=== PATIENT | female | born 1970 | race Caucasian/White ===

== ENCOUNTER 2016-12-22 22:25 | Emergency (ER) | payer OTHER ==
--- NOTE | 2016-12-22 23:44 | ED PDOC ---
Arrival/HPI - General Historian: Patient - History of Present Illness Time/Duration: Prior to Arrival Symptom Onset: Sudden Symptom Course: Unchanged Activities at Onset: Light Context: Walking, Home, Tripped <Ginny Veloz - Last Filed: 12/23/16 01:26> <Vadim Kellogg - Last Filed: 12/23/16 01:46> - General Chief Complaint: Lower Extremity Problem/Injury Time Seen by Provider: 12/22/16 23:12 - History of Present Illness Narrative History of Present Illness (Text): 12/22/16 23:39 46 year old female, whose past medical history includes hypertension and diabetes, who presents to the ED accompanied by family complaining of left great toe pain s/p mechanical fall. Patient states she stumbled and tripped walking on a rug while at home and injured her left great toe at 22:00 tonight. Patient denies falling to the ground. Patient now complaining of pain to the left great toe Patient denies any loss of consciousness, head trauma, weakness/ numbness/tingling in the extremity, or any other complaints. No medications taken for pain. incident occurred prior to arrival. (Ginny Veloz) Past Medical History - Provider Review Nursing Documentation Reviewed: Yes - Cardiac Hx Hypertension: Yes - Endocrine/Metabolic Hx Diabetes Mellitus Type 2: Yes - Psychiatric Hx Substance Use: No - Surgical History Hx Tubal Ligation: Yes - Anesthesia Hx Anesthesia: Yes Hx Anesthesia Reactions: No <Ginny Veloz - Last Filed: 12/23/16 01:26> Family/Social History - Physician Review Nursing Documentation Reviewed: Yes Family/Social History: Unknown Family HX Smoking Status: Unknown If Ever Smoked Hx Alcohol Use: No Hx Substance Use: No <Ginny Veloz - Last Filed: 12/23/16 01:26> Allergies/Home Meds <Ginny Veloz - Last Filed: 12/23/16 01:26> <Vadim Kellogg - Last Filed: 12/23/16 01:46> Allergies/Adverse Reactions: Allergies Penicillins Allergy (Verified 12/23/16 00:52) RASH Home Medications: Home Meds Medication Instructions Recorded Confirmed GlipiZIDE [Glipizide] 20 mg PO BID 10/25/15 12/23/16 Lisinopril [Zestril] 20 mg PO DAILY 10/25/15 12/23/16 Sertraline [Zoloft] 100 mg PO DAILY 10/25/15 12/23/16 metFORMIN [glucOPHAGE] 1,000 mg PO BID 10/25/15 12/23/16 Review of Systems - Physician Review All systems were reviewed & negative as marked: Yes - Review of Systems Constitutional: absent: Fatigue, Fevers Respiratory: absent: SOB, Cough Cardiovascular: absent: Chest Pain, Palpitations Gastrointestinal: absent: Abdominal Pain, Constipation, Diarrhea, Nausea, Vomiting Genitourinary Female: absent: Dysuria, Frequency Musculoskeletal: Arthralgias, Other (+left great toe pain). absent: Back Pain, Neck Pain Skin: absent: Rash, Pruritis Neurological: Normal. absent: Headache, Dizziness <Ginny Veloz - Last Filed: 12/23/16 01:26> Physical Exam Vital Signs Reviewed: Yes Temperature: Afebrile Blood Pressure: Normal Pulse: Regular Respiratory Rate: Normal Appearance: Positive for: Well-Appearing, Non-Toxic, Comfortable Pain Distress: None Mental Status: Positive for: Alert and Oriented X 3 - Systems Exam Head: Present: Atraumatic, Normocephalic Extroacular Muscles: Present: EOMI Conjunctiva: Present: Normal Mouth: Present: Moist Mucous Membranes Neck: Present: Normal Range of Motion Respiratory/Chest: Present: Clear to Auscultation, Good Air Exchange. No: Respiratory Distress, Accessory Muscle Use Cardiovascular: Present: Regular Rate and Rhythm, Normal S1, S2. No: Murmurs Abdomen: No: Tenderness, Distention Upper Extremity: Present: Normal ROM Lower Extremity: Present: NORMAL PULSES, Normal ROM, Tenderness (Tenderness, ecchymosis, and swelling to entire left Great toe, sensation and distal pulses intact), Neurovascularly Intact, Capillary Refill < 2 s. No: Normal Inspection , Edema, CALF TENDERNESS, Deformity Neurological: Present: GCS=15, Speech Normal Skin: Present: Warm, Dry, Normal Color. No: Rashes Psychiatric: Present: Alert, Oriented x 3 <Ginny Veloz - Last Filed: 12/23/16 01:26> Medical Decision Making <Ginny Veloz - Last Filed: 12/23/16 01:26> <Vadim Kellogg - Last Filed: 12/23/16 01:46> ED Course and Treatment: 12/22/16 23:39 Impression: 46 year old female c/o left great toe pain s/p tripping over rug and stubbing toe. Differential Diagnosis included but are not limited to: fracture vs. sprain Plan: -- XR Left Foot -- Toradol -- Reassess and disposition Progress Notes: Patient is nontoxic well-appearing in no distress her vital signs are stable. XRAY L great TOE; + distal phalanx fx 1st toe. JACQUELIN TAPE TOE cane given for ambulation pt advised to walk on heel. I discussed all results in depth with the patient and advised follow-up with the primary care physician/orthopedist within the next 2 days. I advised immediate return if symptoms worsen or persist or if new concerning symptoms develop. Patient verbalizes understanding of discharge instructions and need for immediate followup. all aspects of this case were discussed the attending of record. IMPRESSION; fracture, TOE Motrin every 6 hours as needed for pain percocet; one tablet or 6 hours as needed for moderate to severe pain: May cause drowsiness Follow up with primary care physician within the next 2 days Follow up with the orthopedist/buffer copper within the next 2 days Return if symptoms worsen persist or if new symptoms develop (Ginny Veloz) - RAD Interpretation Radiology Orders: 12/22/16 23:54 FOOT LEFT GREAT TOE ROUTINE [RAD] Stat - Medication Orders Current Medication Orders: Discontinued Medications Ketorolac Tromethamine (Toradol) 60 mg IM STAT STA Stop: 12/22/16 23:55 Last Admin: 12/23/16 00:55 Dose: 60 mg - Scribe Statement The provider has reviewed the documentation as recorded by the Scribe <Ginny Veloz - Last Filed: 12/23/16 01:26> - PA / [employer] / Resident Statement /DO has reviewed & agrees with the documentation as recorded. <Vadim Kellogg - Last Filed: 12/23/16 01:46> - Scribe Statement Viola Leal All medical record entries made by the Scribe were at my direction and personally dictated by me. I have reviewed the chart and agree that the record accurately reflects my personal performance of the history, physical exam, medical decision making, and the department course for this patient. I have also personally directed, reviewed, and agree with the discharge instructions and disposition. (Ginny Veloz) Disposition/Present on Arrival - Present on Arrival Any Indicators Present on Arrival: No History of DVT/PE: No History of Uncontrolled Diabetes: No Urinary Catheter: No History Surgical Site Infection Following: None - Disposition Have Diagnosis and Disposition been Completed?: Yes Disposition Time: 01:11 Patient Plan: Discharge <Ginny Veloz - Last Filed: 12/23/16 01:26> <Vadim Kellogg - Last Filed: 12/23/16 01:46> - Disposition Diagnosis: Fracture, toe Disposition: HOME/ ROUTINE Patient Problems: Current Active Problems Problem Status Onset Fracture, toe Acute Condition: GOOD Discharge Instructions (ExitCare): Toe Fracture (ED) Additional Instructions: Motrin every 6 hours as needed for pain percocet; one tablet or 6 hours as needed for moderate to severe pain: May cause drowsiness Follow up with primary care physician within the next 2 days Follow up with the orthopedist/buffer copper within the next 2 days Return if symptoms worsen persist or if new symptoms develop Prescriptions: Ibuprofen [Motrin] 600 mg PO Q6H PRN #20 tab PRN Reason: pain/fever reduction oxyCODONE/Acetaminophen [Percocet 5/325 mg Tab] 1 tab PO Q6H PRN #10 tab PRN Reason: moderate to severe pain Referrals: Bing Casiano MD [Staff Provider] - Follow up with primary Gen Estrada DPM [Staff Provider] - Follow up with primary [facility] [Outside] - Follow up with primary Forms: WORK NOTE
--- NOTE | 2016-12-22 23:44 | ED PDOC ---
Arrival/HPI - General Time Seen by Provider: 12/22/16 23:12 - History of Present Illness Narrative History of Present Illness (Text): 12/22/16 23:35 46 year old female patient with a history of hypertension and diabetes presents to the Emergency department complaining of pain in her left big toe due to stumbling over her rug at around 22:00. The patient denies chest pain, shortness of breath, persistent cough, nausea, vomiting, diarrhea, or any other symptoms. 12/22/16 23:45 Time/Duration: 1 hour, 1-3 hours Symptom Onset: Sudden Symptom Course: Unchanged Quality: Aching Context: Home Past Medical History - Provider Review Nursing Documentation Reviewed: Yes - Cardiac Hx Hypertension: Yes - Endocrine/Metabolic Hx Diabetes Mellitus Type 2: Yes - Psychiatric Hx Substance Use: No - Surgical History Hx Tubal Ligation: Yes - Anesthesia Hx Anesthesia: Yes Hx Anesthesia Reactions: No Family/Social History - Physician Review Nursing Documentation Reviewed: Yes Family/Social History: Unknown Family HX Smoking Status: Unknown If Ever Smoked Hx Alcohol Use: No Hx Substance Use: No Allergies/Home Meds Allergies/Adverse Reactions: Allergies Penicillins Allergy (Verified 10/25/15 08:32) RASH Home Medications: Home Meds Medication Instructions Recorded Confirmed Cholestol Med 10/25/15 GlipiZIDE [Glipizide] 20 mg PO BID 10/25/15 10/25/15 Lisinopril [Zestril] 20 mg PO DAILY 10/25/15 10/25/15 Sertraline [Zoloft] 100 mg PO DAILY 10/25/15 10/25/15 Vit D Unk Dose 10/25/15 metFORMIN [glucOPHAGE] 1,000 mg PO BID 10/25/15 10/25/15 Review of Systems - Physician Review All systems were reviewed & negative as marked: Yes - Review of Systems Constitutional: Normal Eyes: Normal ENT: Normal Respiratory: Normal. absent: SOB, Cough Cardiovascular: Normal. absent: Chest Pain Gastrointestinal: Normal. absent: Diarrhea, Nausea, Vomiting Genitourinary Female: Normal Musculoskeletal: Normal, Other (Pain in left big toe) Skin: Normal Neurological: Normal Endocrine: Normal Hemo/Lymphatic: Normal Psychiatric: Normal Disposition/Present on Arrival - Present on Arrival History of DVT/PE: No History of Uncontrolled Diabetes: No Urinary Catheter: No History Surgical Site Infection Following: None - Disposition
[2016-12-23 00:46] VITALS: BP 137/81; PULSE 90; RESP 17; TEMP 98.8; O2SAT 98
[2016-12-23 00:47] VITALS: BMI 36.9
--- NOTE | 2016-12-23 09:58 | RAD ---
PROCEDURE: Radiographs of the left great toe. TECHNIQUE:: AP radiograph of the left foot, with oblique and lateral view of the left great toe. COMPARISON: None. FINDINGS: BONES: Current study reveals a transverse fracture through the base of the distal phalanx 1st toe. There appears some mild inferior displacement distal fragment. Mild surrounding soft tissue swelling. . JOINTS: Joint spaces preserved SOFT TISSUES: As above. OTHER FINDINGS: None. IMPRESSION: Fracture base proximal phalanx great toe with surrounding soft tissue swelling This report placed in PA review folder followup
== END 2016-12-23 01:11 | disposition home or self-care (01) ==
LOC: ED 22:25
DX: S92.422A Displaced fracture of distal phalanx of left great toe, initial encounter for closed fracture (principal); W01.0XXA Fall on same level from slipping, tripping and stumbling without subsequent striking against object, initial encounter; Y93.89 Activity, other specified; Y92.008 Other place in unspecified non-institutional (private) residence as the place of occurrence of the external cause
CPT/HCPCS: 73660; 96372; 99283; J1885

== ENCOUNTER 2017-01-25 16:12 | Emergency (ER) | payer OTHER ==
[2017-01-25 16:12] VITALS: BMI 36.9
[2017-01-25 16:22] VITALS: TEMP 98.1
--- NOTE | 2017-01-25 16:30 | ED PDOC ---
Arrival/HPI - General Chief Complaint: Chest Pain Time Seen by Provider: 01/25/17 16:18 - History of Present Illness Narrative History of Present Illness (Text): 01/25/17 16:27 46 yo female, hx of htn, dm, presents with cp/morgan. as per pt, has had pain for 2 days, "which started after she was upset". pt states no sob, fevers, (+)nausea, no vomiting. pt saw pmd, sent to er for eval. Past Medical History - Provider Review Nursing Documentation Reviewed: Yes - Infectious Disease Hx of Infectious Diseases: None - Cardiac Hx Cardiac Disorders: Yes Hx Hypertension: Yes - Pulmonary Hx Respiratory Disorders: No - Neurological Hx Neurological Disorder: No - HEENT Hx HEENT Disorder: No - Renal Hx Renal Disorder: No - Endocrine/Metabolic Hx Diabetes Mellitus Type 2: Yes - Hematological/Oncological Hx Blood Disorders: No - Integumentary Hx Dermatological Disorder: No - Musculoskeletal/Rheumatological Hx Musculoskeletal Disorders: No - Gastrointestinal Hx Gastrointestinal Disorders: No - Genitourinary/Gynecological Hx Genitourinary Disorders: No - Psychiatric Hx Psychophysiologic Disorder: Yes Hx Depression: Yes Hx Substance Use: No - Surgical History Hx Appendectomy: Yes Hx Tonsillectomy: Yes Hx Tubal Ligation: Yes - Anesthesia Hx Anesthesia: Yes Hx Anesthesia Reactions: No Family/Social History - Physician Review Nursing Documentation Reviewed: Yes Family/Social History: Unknown Family HX Smoking Status: Unknown If Ever Smoked Hx Alcohol Use: No Hx Substance Use: No Allergies/Home Meds Allergies/Adverse Reactions: Allergies Penicillins Allergy (Verified 01/25/17 16:19) RASH Home Medications: Home Meds Medication Instructions Recorded Confirmed GlipiZIDE [Glipizide] 20 mg PO BID 10/25/15 01/25/17 Lisinopril [Zestril] 20 mg PO DAILY 10/25/15 01/25/17 Sertraline [Zoloft] 125 mg PO DAILY 10/25/15 01/25/17 metFORMIN [glucOPHAGE] 1,000 mg PO BID 10/25/15 01/25/17 Review of Systems - Review of Systems Constitutional: Normal Eyes: Normal ENT: Normal Respiratory: Normal Cardiovascular: Chest Pain Gastrointestinal: Normal Genitourinary Female: Normal Musculoskeletal: Normal Skin: Normal Neurological: Headache Endocrine: Normal Hemo/Lymphatic: Normal Psychiatric: Normal Physical Exam Vital Signs Temp Pulse Resp BP Pulse Ox 01/25/17 18:40 81 18 127/95 H 100 01/25/17 17:45 82 15 156/89 H 98 01/25/17 16:21 98.1 F 86 16 145/96 H 96 Temperature: Afebrile Blood Pressure: Normal Pulse: Regular Respiratory Rate: Normal Appearance: Positive for: Well-Appearing, Non-Toxic, Comfortable Pain Distress: None Mental Status: Positive for: Alert and Oriented X 3 - Systems Exam Head: Present: Atraumatic, Normocephalic Pupils: Present: PERRL Extroacular Muscles: Present: EOMI Conjunctiva: Present: Normal Mouth: Present: Moist Mucous Membranes Neck: Present: Normal Range of Motion Respiratory/Chest: Present: Clear to Auscultation, Good Air Exchange. No: Respiratory Distress, Accessory Muscle Use Cardiovascular: Present: Regular Rate and Rhythm, Normal S1, S2. No: Murmurs Abdomen: Present: Tenderness (mild epigastric), Normal Bowel Sounds. No: Distention, Peritoneal Signs Back: Present: Normal Inspection Upper Extremity: Present: Normal Inspection. No: Cyanosis, Edema Lower Extremity: Present: Normal Inspection. No: Edema Neurological: Present: GCS=15, CN II-XII Intact, Speech Normal, Motor Func Grossly Intact, Normal Sensory Function, Normal Cerebellar Funct Skin: Present: Warm, Dry, Normal Color. No: Rashes Psychiatric: Present: Alert, Oriented x 3, Normal Insight, Normal Concentration , Anxious (mildly) Medical Decision Making ED Course and Treatment: 01/25/17 16:30 cp r/o acs - perc neg. 01/25/17 16:30 ekg nsr 87 pvc, non specific t wave change, no interval change. noted neg stress 201401/25/17 18:23 pt reassesed: smiling, states all symptoms resolved. no e/o of dka. insulin dosed. trop neg x 2 days of pain. case discussed with dr sales, requests outpt f/u in his office.l - Lab Interpretations Microbiology Results: Microbiology Results 01/25/17 16:35 Urine,Clean Catch Urine Culture - Final Gram Positive Cocci Lab Results: 01/25/17 16:40 01/25/17 16:40 Lab Results 01/25/17 18:38: POC Glucose (mg/dL) 338 H 01/25/17 18:08: POC Glucose (mg/dL) 387 H 01/25/17 16:40: Sodium 134, Potassium 4.4, Chloride 99, Carbon Dioxide 25, Anion Gap 14, BUN 8, Creatinine 0.4 L, Est GFR ( Amer) > 60, Est GFR (Non -Af Amer) > 60, Random Glucose 400 H* D, Calcium 9.2, Magnesium 1.7, Total Bilirubin 0.6, AST 20, ALT 27, Alkaline Phosphatase 93, Lactate Dehydrogenase 380, Total Creatine Kinase 34 L, Troponin I < 0.01, Total Protein 7.1, Albumin 4.1, Globulin 3.1, Albumin/Globulin Ratio 1.3, Lipase 99 01/25/17 16:40: PT 10.6, INR 0.98, APTT 22.9 L 01/25/17 16:40: WBC 7.3 D, RBC 4.67, Hgb 11.6 L, Hct 36.2, MCV 77.5 L, MCH 24.8 L, MCHC 32.0, RDW 16.5 H, Plt Count 308, MPV 10.7, Gran % 56.2, Lymph % ( Auto) 37.4 H, [place] % (Auto) 5.3, Eos % (Auto) 0.8 L, Baso % (Auto) 0.3, Gran # 4.09, Lymph # 2.7, [place] # 0.4, Eos # 0.1, Baso # 0.02 01/25/17 16:35: Urine Color Yellow, Urine Appearance Sl cloudy, Urine pH 6.5, Ur Specific [place] 1.010, Urine Protein Trace H, Urine Glucose (UA) >=1000, Urine Ketones Negative, Urine Blood Negative, Urine Nitrate Negative, Urine Bilirubin Negative, Urine Urobilinogen 0.2, Ur Leukocyte Esterase Trace H, Urine RBC 0 - 2, Urine WBC 10 - 15, Ur Epithelial Cells 10 - 12, Urine Bacteria Few, Urine HCG, Qual Negative - RAD Interpretation Radiology Orders: 01/25/17 16:26 CHEST PORTABLE [RAD] Stat - Medication Orders Current Medication Orders: Discontinued Medications Sodium Chloride (Sodium Chloride 0.9%) 1,000 mls @ 999 mls/hr IV .Q1H1M STA Stop: 01/25/17 18:07 Last Admin: 01/25/17 17:43 Dose: 999 mls/hr Insulin Human Regular (Humulin R) 5 units IV STAT STA Stop: 01/25/17 17:08 Last Admin: 01/25/17 17:44 Dose: 5 units Lorazepam (Ativan) 0.5 mg IVP ONCE ONE PRN Reason: Protocol Stop: 01/25/17 16:28 Last Admin: 01/25/17 16:58 Dose: 0.5 mg Nitrofurantoin Macrocrystals (Macrobid) 100 mg PO STAT STA Stop: 01/25/17 17:17 Last Admin: 01/25/17 17:44 Dose: 100 mg Ondansetron HCl (Zofran Inj) 4 mg IVP STAT STA Stop: 01/25/17 16:28 Last Admin: 01/25/17 16:59 Dose: 4 mg Pantoprazole Sodium (Protonix Inj) 40 mg IVP STAT STA Stop: 01/25/17 16:28 Last Admin: 01/25/17 16:58 Dose: 40 mg Disposition/Present on Arrival - Present on Arrival Any Indicators Present on Arrival: No History of DVT/PE: No History of Uncontrolled Diabetes: No Urinary Catheter: No History of Decub. Ulcer: No History Surgical Site Infection Following: None - Disposition Have Diagnosis and Disposition been Completed?: Yes Diagnosis: Chest pain, Headache, Hyperglycemia, UTI (urinary tract infection) Disposition: HOME/ ROUTINE Disposition Time: 07:00 Condition: STABLE Discharge Instructions (ExitCare): Chest Pain (ED), Urinary Tract Infection in Women (ED), Diabetic Hyperglycemia (ED) Additional Instructions: please follow up with your doctor/specialist. return to er with worsening symptoms or concenrs. Prescriptions: Nitrofurantoin Macrocrystals [Macrobid] 100 mg PO BID #14 cap Referrals: Edvin Sales DO [Primary Care Provider] - Follow up with primary Lonnie Lanza MD [Staff Provider] - Follow up with primary Forms: [employer] (Slovak)
[2017-01-25 16:47] LABS: PH,URINE 6.5 (4.7-8.0); URINE BILIRUBIN NEGATIVE (NEGATIVE); URINE BLOOD NEGATIVE (NEGATIVE); URINE GLUCOSE (UA) >=1000 mg/dL (NEGATIVE); URINE KETONE NEGATIVE (NEGATIVE); URINE LEUKOCYTE ESTERASE TRACE Leu/uL (NEGATIVE); URINE PROTEIN TRACE mg/dL (<30 mg/dL); URINE UROBILINOGEN 0.2 E.U./dL (<1 E.U./dL)
[2017-01-25 16:51] LABS: URINE APPEARANCE SL CLOUDY (CLEAR); URINE COLOR YELLOW (YELLOW)
[2017-01-25 16:55] LABS: BASO # 0.02 K/mm3 (0.0-2.0); BASO % 0.3 % (0.0-3.0); EOS # 0.1 (0.0-0.7); EOS % 0.8 % (1.5-5.0); GRAN # 4.09 (1.4-6.5); GRAN % 56.2 % (50.0-68.0); HEMATOCRIT 36.2 % (36.0-48.0); LYMPH # 2.7 (1.2-3.4); LYMPH % 37.4 % (22.0-35.0); MEAN CELL VOLUME 77.5 fl (80.0-105.0); MEAN CORPUSCULAR HEMOGLOBIN 24.8 pg (25.0-35.0); MEAN PLATELET VOLUME 10.7 fl (7.0-11.0); MONO # 0.4 (0.1-0.6); MONO % 5.3 % (1.0-6.0); RED CELL DISTRIBUTION WIDTH 16.5 % (11.5-14.5); WHITE BLOOD COUNT 7.3 10^3/ul (4.5-11.0)
[2017-01-25 17:03] LABS: ALB/GLOB RATIO 1.3 (1.1-1.8); ALKALINE PHOSPHATASE 93 U/L (38-133); ALT/SGPT 27 U/L (7-56); AST/SGOT 20 U/L (15-39); BILIRUBIN,TOTAL 0.6 mg/dL (0.2-1.3); BLOOD UREA NITROGEN 8 mg/dL (7-21); CALCIUM 9.2 mg/dL (8.4-10.5); CARBON DIOXIDE 25 mmol/L (21-33); CHLORIDE 99 mmol/L (98-107); GFR AFRICAN-AMERICAN > 60; LIPASE 99 U/L (23-300); MAGNESIUM 1.7 mg/dL (1.7-2.2); POTASSIUM 4.4 mmol/L (3.6-5.0); SODIUM 134 mmol/L (132-148); TOTAL PROTEIN 7.1 g/dL (5.8-8.3)
[2017-01-25 17:04] LABS: URINE BACTERIA FEW (NEG); URINE RBC 0 - 2 /hpf (0-2)
[2017-01-25 17:06] LABS: GLUCOSE,RANDOM 400 mg/dL (70-110)
[2017-01-25] MEDS ORDERED: Sodium Chloride 0.9% 1,000 ML IV STA (17:07)
[2017-01-25] MEDS ORDERED: Insulin Regular 1 UNITS/0.01 ML ML IV STA (17:07)
[2017-01-25 17:10] LABS: INR 0.98 (0.93-1.08); PARTIAL THROMBOPLASTIN TIME 22.9 Seconds (23.7-30.8)
[2017-01-25 17:15] LABS: TROPONIN I < 0.01 ng/mL
--- NOTE | 2017-01-25 18:17 | RAD ---
HISTORY: Chest pain. COMPARISON: 10/25/2015. FINDINGS: LUNGS: No active pulmonary disease. PLEURA: No significant pleural effusion identified, no pneumothorax apparent. CARDIOVASCULAR: No radiographic findings to suggest acute or significant cardiovascular disease. OSSEOUS STRUCTURES: No significant abnormalities. VISUALIZED UPPER ABDOMEN: Normal. OTHER FINDINGS: None. IMPRESSION: No active disease. No significant interval change compared to the prior examination(s).
[2017-01-25 18:41] VITALS: BP 127/95; PULSE 81; RESP 18; O2SAT 100
--- NOTE | 2017-01-26 13:31 | CARD ---
APPROVED REPORT EKG Measurement Heart [id number] <Conclusion> Sinus rhythm with frequent premature ventricular complexes Nonspecific T wave abnormality Abnormal ECG
== END 2017-01-25 18:56 | disposition home or self-care (01) ==
LOC: ED 16:12
DX: N39.0 Urinary tract infection, site not specified (principal); E11.65 Type 2 diabetes mellitus with hyperglycemia; R51 Headache; R07.9 Chest pain, unspecified
CPT/HCPCS: 71010; 80053; 81001; 82550; 82948; 83615; 83690; 83735; 84484; 84703; 85025; 85610; 85730; 87086; 93005; 96374; 96375; 99284; C9113; J2060; J2405; J7040